=== PATIENT | female | born 1955 | race Caucasian/White ===

== ENCOUNTER 2023-03-17 15:08 | Emergency (ER) | payer BC, OTHER ==
[2023-03-17 15:22] VITALS: RESP 18; TEMP 98
[2023-03-17] MEDS ORDERED: DOXYCYCLINE HYCLATE 100 MG CAPSULE PO ONE ×2 (16:12→16:27)
[2023-03-17] MEDS ORDERED: IBUPROFEN 600 MG TABLET (FP) PO ONE ×2 (16:16→16:27)
[2023-03-17 16:22] VITALS: BMI 21.9
[2023-03-17 16:59] VITALS: BP 142/79; PULSE 82
== END 2023-03-17 18:12 | disposition home or self-care (01) ==
LOC: JERFT 15:08
DX: S81.852A Open bite, left lower leg, initial encounter (principal); W54.0XXA Bitten by dog, initial encounter
CPT/HCPCS: 99283-25